=== PATIENT | female | born 1950 | race Caucasian/White ===

== ENCOUNTER → 2017-06-06 | Outpatient (CLI) | payer MEDICARE ==
[2017-06-06 14:50] VITALS: BMI 24.8
[2017-06-06 14:58] VITALS: BP 111/66; PULSE 77; RESP 16; TEMP 98.3
[2017-06-06 16:22] LABS: CH 28.1; CHCM 32.7; HCT 38.8 % (34.0-46.0); HDW 2.26; MCHC 33.6 g/dL (31.0-37.0); MCV 86.2 fL (80.0-100.0); Mean Platelet Volume 7.8; RDW 12.9 % (11.5-15.5); WBC 7.7 k/uL (3.8-10.6)
[2017-06-06 16:28] LABS: ALT 57 U/L (9-52); AST 36 U/L (14-36); Alkaline Phosphatase 67 U/L (38-126); Blood Urea Nitrogen 16 mg/dL (7-17); Carbon Dioxide 27 mmol/L (22-30); Glucose 178 mg/dL (74-99); Non-African American GFR(MDRD) >60 (>60 ml/min/1.73 sqM); Total Bilirubin 0.2 mg/dL (0.2-1.3); Total Protein 6.6 g/dL (6.3-8.2)
[2017-06-06 16:29] LABS: Anion Gap 9 mmol/L; Calcium 9.5 mg/dL (8.4-10.2); Chloride 98 mmol/L (98-107); Iron 47 ug/dL (37-170); Magnesium 1.8 mg/dL (1.6-2.3); Partial Thromboplastin Time 23.1 sec (22.0-30.0); Potassium 3.8 mmol/L (3.5-5.1); Prothrombin Time 10.3 sec (9.0-12.0); Sodium 134 mmol/L (137-145)
[2017-06-06 16:40] LABS: % Iron Saturation 14.3 % (20-50); Prealbumin 28 mg/dL (18-36); Total Iron Binding Capacity 328 ug/dL (265-497)
[2017-06-06 17:35] LABS: Vitamin B12 442 pg/mL
[2017-06-06 18:03] LABS: Hemoglobin A1C 7.3 % (4.2-6.1)
--- NOTE | 2017-06-07 14:42 | P.PN ---
Progress Note - Text To Whom It May Concern: Amber Nixon requires daily nutritional protein drinks and multivitamins as part of her daily expenses. A subsidized program is being requested. Regards, Keily Wilkerson MD
[2017-06-09 10:54] LABS: Selenium 136 mcg/L (63-160)
== END | disposition home or self-care (01) ==
LOC: BARWHC3 14:14
PROVIDERS: ATTEND Surgery Plastic and Reconstructive Surgery
DX: E66.01 Morbid (severe) obesity due to excess calories (principal); N19 Unspecified kidney failure; D50.8 Other iron deficiency anemias; K90.89 Other intestinal malabsorption; E44.0 Moderate protein-calorie malnutrition; E55.9 Vitamin D deficiency, unspecified; K74.1 Hepatic sclerosis; K50.90 Crohn's disease, unspecified, without complications; E89.1 Postprocedural hypoinsulinemia
CPT/HCPCS: 84255; 84134; 84425; 80053; 82607; 82728; 83036; 82525; 82746; 83540; 83550; 83735; 84100; 84443; 84590; 84630; 85027; 85610; 85730; 82306; 83970; 36415; G0463; 99211

== ENCOUNTER 2018-04-04 06:19 | Day surgery (SDC) | payer MEDICARE, OTHER ==
[2018-04-01 13:05] VITALS: BMI 36.0
[~2018-04-04 06:19] MED LIST: ALPRAZolam 0.25 MG TAB PO PRN; ALPRAZolam 0.5 MG TAB PO PRN; ASPIRIN 325 MG TAB PO STA; ATORVASTATIN 80 MG TAB PO STA; NITROGLYCERIN SL TABS 0.4 MG TAB SUBLINGUAL PRN; SODIUM CHLORIDE 0.9% 1,000 ML in EMPTY BAG 1 BAG IV ONE
[2018-04-04] MEDS ORDERED: SODIUM CHLORIDE 0.9% 1,000 ML IV ONE (06:44)
[2018-04-04] MEDS ORDERED: ASPIRIN 81 MG ONE (06:58)
[2018-04-04 07:25] LABS: Glucose,Whole Blood 132 mg/dL (75-99)
[2018-04-04 07:31] VITALS: TEMP 97
[2018-04-04] MEDS ORDERED: MIDAZOLAM 2 MG/2 ML VIAL ONE (07:34)
[2018-04-04] MEDS ORDERED: LIDOCAINE 2% INJ 20 MG/ML SQ ONE (07:42)
[2018-04-04] MEDS ORDERED: MIDAZOLAM 2 MG/2 ML VIAL IVP ONE (07:42)
[2018-04-04] MEDS ORDERED: IOPAMIDOL-370 125ML BTL INJ ONE (07:53)
[2018-04-04] MEDS ORDERED: SODIUM CHLORIDE 0.9% 1,000 ML IV SCH (08:00)
[2018-04-04] MEDS ORDERED: RX INFO: IV CONTRAST WAS GIVEN 1 EACH MISC MISCELLANE PRN (08:00)
--- NOTE | 2018-04-04 09:39 | CC ---
CARDIAC CATHETERIZATION REPORT DATE OF SERVICE: 04/04/2018. INDICATION: Abnormal stress test in a patient with known CAD status post prior angioplasty. REFERRING PHYSICIAN: Maryann Cox. PROCEDURE NOTE: After obtaining informed consent, left heart catheterization and coronary angiogram were performed via the right femoral artery using standard Napoleon catheters. The patient tolerated the procedure well without any obvious immediate complications. A femoral angiogram was performed and decision was made for manual hemostasis. Patient received moderate conscious sedation and total sedation time was 15 minutes. FINDINGS: HEMODYNAMICS: The left ventricular end-diastolic pressure is 14 to 16 mm there is no significant gradient across aortic. LEFT VENTRICULOGRAM: Left ventriculogram not performed. ANGIOGRAPHIC DATA: 1. LEFT MAIN: Left main coronary artery appears calcified but is free of significant stenosis. Divides into left anterior descending coronary artery and circumflex coronary artery. 2. LAD shows a 20% to 30% stenosis in the proximal part, gives off a diagonal branch that has a stent that appears patent. 3. CIRCUMFLEX: Circumflex coronary artery is free of significant disease. 4. RIGHT CORONARY: Right coronary artery is a large dominant vessel and is free of significant stenosis. There is a 30% stenosis in the proximal part. CONCLUSIONS: 1. Patent stent within the diagonal branch. 2. Mild nonobstructive disease involving proximal LAD and right coronary artery. PLAN: Patient's stress test is probably a false positive stress test and her management is going to be in the form of risk factor modification and optimal medical therapy. MMODL / IJN: [id number] /
[2018-04-04 14:13] VITALS: RESP 16
[2018-04-04 14:14] VITALS: BP 135/65; PULSE 52
[2018-04-04 17:12] LABS: Hemoglobin A1C 6.4 % (4.0-6.0)
== END 2018-04-04 14:40 | disposition home or self-care (01) ==
LOC: CATHCVL 06:19
PROVIDERS: ATTEND Internal Medicine Cardiovascular Disease
DX: I25.10 Atherosclerotic heart disease of native coronary artery without angina pectoris (principal); I10 Essential (primary) hypertension; E11.9 Type 2 diabetes mellitus without complications; E78.5 Hyperlipidemia, unspecified; Z82.49 Family history of ischemic heart disease and other diseases of the circulatory system; Z79.82 Long term (current) use of aspirin; Z79.4 Long term (current) use of insulin; Z79.899 Other long term (current) drug therapy
CPT/HCPCS: 93458; 83036; C1894; C1769; J2001; J2250; Q9967

== ENCOUNTER → 2018-06-05 | Outpatient (CLI) | payer MEDICARE, OTHER ==
--- NOTE | 2018-06-05 16:20 | P.PN ---
Subjective Progress Note Date: 06/05/18 HPI: She reports weigh gain of 18 pounds. Her doctors put her back on insulin for Hemoglobin A1c of 6.5%. Has occasional dysphagia. She has to do infusions for her kidneys for the rest off her life. She had a colonoscopy in [place]. ABDOMEN: No hernias. Nontender PLAN: 1. Low carb 2 week diet reviewed. 2. Get labs 3. Went over diet is 1200 kcal and is readdressed to under 1000 kcal. 4. Get labs.
[2018-06-05 17:40] VITALS: BP 131/61; PULSE 63; RESP 15; TEMP 98.2; BMI 26.7
== END | disposition home or self-care (01) ==
LOC: BARWHC3 14:10
PROVIDERS: ATTEND Surgery Plastic and Reconstructive Surgery
DX: R63.5 Abnormal weight gain (principal); R13.10 Dysphagia, unspecified
CPT/HCPCS: 99211

== ENCOUNTER → 2018-06-25 | Outpatient (CLI) | payer MEDICARE, OTHER ==
[2018-06-25 12:46] LABS: HCT 40.4 % (34.0-46.0); HGB 13.3 gm/dL (11.4-16.0); MCH 29.3 pg (25.0-35.0); MCHC 32.9 g/dL (31.0-37.0); MCV 89.1 fL (80.0-100.0); Platelet Count 183 k/uL (150-450); RBC 4.53 m/uL (3.80-5.40); RDW 13.4 % (11.5-15.5); WBC 16.1 k/uL (3.8-10.6)
[2018-06-25 13:02] LABS: ALT 69 U/L (9-52); AST 39 U/L (14-36); Albumin 3.5 g/dL (3.5-5.0); Alkaline Phosphatase 66 U/L (38-126); Anion Gap 8 mmol/L; Blood Urea Nitrogen 20 mg/dL (7-17); Calcium 9.1 mg/dL (8.4-10.2); Carbon Dioxide 31 mmol/L (22-30); Chloride 96 mmol/L (98-107); Cholesterol 163 mg/dL (<200); Glucose 214 mg/dL (74-99); HDL Cholesterol 66 mg/dL (40-60); LDL Cholesterol,Calculated 66 mg/dL (0-99); Magnesium 1.8 mg/dL (1.6-2.3); Partial Thromboplastin Time 21.1 sec (22.0-30.0); Phosphorus 3.2 mg/dL (2.5-4.5); Potassium 4.4 mmol/L (3.5-5.1); Sodium 135 mmol/L (137-145); Total Bilirubin 0.3 mg/dL (0.2-1.3); Total Protein 6.1 g/dL (6.3-8.2); Triglycerides 155 mg/dL (<150)
[2018-06-25 19:37] LABS: Parathyroid Hormone Intact 83.7 pg/mL (14.0-72.0)
[2018-06-25 20:53] LABS: Iron Saturation 19.54 (12.00-45.00)
[2018-06-25 21:01] LABS: Vitamin D 25 Hydroxy 92.4 ng/mL (30.0-100.0)
[2018-06-25 21:13] LABS: Folate, Serum 23.3 ng/mL
[2018-06-25 22:47] LABS: Hemoglobin A1C 6.9 % (4.0-6.0)
[2018-06-26 14:45] LABS: Zinc, Serum 51 ug/dL (60-130)
== END | disposition home or self-care (01) ==
LOC: LABWHC1 11:59
PROVIDERS: ATTEND Surgery Plastic and Reconstructive Surgery
DX: E21.1 Secondary hyperparathyroidism, not elsewhere classified (principal); E66.01 Morbid (severe) obesity due to excess calories; E89.1 Postprocedural hypoinsulinemia; D50.9 Iron deficiency anemia, unspecified; E44.0 Moderate protein-calorie malnutrition; E55.9 Vitamin D deficiency, unspecified; K74.1 Hepatic sclerosis; N19 Unspecified kidney failure; K50.90 Crohn's disease, unspecified, without complications
CPT/HCPCS: 36415; 80053; 80061; 82306; 82525; 82607; 82728; 82746; 83036; 83540; 83550; 83735; 83970; 84100; 84134; 84255; 84425; 84443; 84590; 84630; 85027; 85610; 85730

== ENCOUNTER → 2018-07-03 | Outpatient (CLI) | payer MEDICARE, OTHER ==
[2018-07-03 13:30] VITALS: BP 126/66; PULSE 66; TEMP 97.2; BMI 25.9
--- NOTE | 2018-07-03 13:43 | P.PN ---
Subjective Progress Note Date: 07/03/18 DATE OF SERVICE: 07/03/2018 CHIEF COMPLAINT: Follow-up gastric bypass. HISTORY OF PRESENT ILLNESS: Trinity Nixon is a 68-year-old female who is status post Kia-en-Y gastric bypass in April 2015. She is 3 years out. Her initial weight for her 4 foot 10 frame was 174 pounds. Today she comes in weighing 124 pounds from 128 pounds, 2 months ago. She has lost 4 pounds. Kula body weight is 118 pounds. She has maintained a 50 pound weight loss. Her body mass index has been reduced from 36.4 down to 25.9. Her percent excess weight loss is 90%. She has no issues. She has lost 4 pounds. No reports of abdominal pain. PAST MEDICAL HISTORY: 1. Gastroesophageal reflux disease, resolved. 2. Depression. 3. Hypertension. 4. Asthma. 5. Diabetes type 2. 6. Coronary artery disease. 7. Hypothyroidism. 8. Hemolytic uremic syndrome. 9. Acute renal failure. 9. Morbid obesity, BMI 36.4, initial PAST SURGICAL HISTORY: 1. Upper endoscopy. 2. Cardiac catheterization. 3. Appendectomy. 4. Cholecystectomy. 5. Hysterectomy. 6. Status post Kia-en-Y gastric bypass. 7. Hsitory of back surgery. MEDICATIONS: 1. Januvia. 2. Nitrostat. 3. Toprol-XL. 4. Magnesium oxide. 5. Prednisone. 6. Hydralazine. 7. Catapres. 8. Paxil. 9. Synthroid. 10. Lisinopril 11. Lasix. 12. Ecotrin. 13. Keppra. ALLERGIES: Denies. SOCIAL HISTORY: Lifelong nontobacco user. FAMILY HISTORY: Pertinent for diabetes, congestive heart failure. REVIEW OF SYSTEMS: CONSTITUTIONAL: Her initial weight for her 4 foot 10 frame was 174 pounds. Today she comes in weighing 128 pounds from 119 pounds, 1 year ago. She has gained 9 pounds. Kula body weight is 118 pounds. She has maintained a 46 pound weight loss. Her body mass index has been reduced from 36.4 down to 26.8. Her percent excess weight loss is 83%. GENITOURINARY: She had de Marely kidney failure and is now on infusions. ENDOCRINE: She had been taking insulin and now is on Januvia. GASTROINTESTINAL: She had a prior history of rectal bleed. She completed colonoscopy without incident. HEMATOLOGIC: History bleeding resolved with plasmapheresis. No current bleeding. RESPIRATORY: Prior history of snoring which required tonsillectomy. Also had a prior sleep study. No reports of asthma. CARDIOVASCULAR: No reports of palpitations or chest pain. MUSCULOSKELETAL: Has occasional joint pain including back pain. NEURO: No seizure disorders or headaches. PSYCH: Has depression without suicidal ideation. SKIN: History of itching underneath the pannus consistent with panniculitis. PHYSICAL EXAM: VITAL SIGNS: 4 foot 10, 124 pounds. Body mass index 25.9 Vital Signs Temp 97.2 F L 07/03/18 13:21 Pulse 66 07/03/18 13:21 Resp BP 126/66 07/03/18 13:21 Pulse Ox GENERAL: Well developed and in no acute distress. Pleasant. HEENT: No sclera icterus. Extraocular movements grossly intact. Moist buccal mucosa. Head is atraumatic, normocephalic. Hears conversational speech. No nasal drainage. NECK: Supple without lymphadenopathy. No JV distention. CHEST: Non-labored respirations and equal bilateral excursions. CARDIOVASCULAR: Regular rate and rhythm. Palpable 2+ radial pulses. ABDOMEN: Nontender. Soft, nondistended. MUSCULOSKELETAL: No clubbing, cyanosis or edema. NEUROLOGIC: No focal or lateralizing signs. PSYCH: Appropriate affect. Alert and oriented to person, place and time. SKIN: Good skin turgor. Well perfused. LABS: Reviewed. ASSESSMENT: 1. Morbid obesity due to excess caloric intake. 2. Body mass index reduced from 36.6 down to 25.9 3. Status post Kia-en-Y gastric bypass. 4. Hemolytic-uremic syndrome. 6. Diabetes type 2, insulin-dependent now non-insulin dependent. 7. Hypertension, improved. 8. Hypothyroidism. 9. Vitamin D deficiency. 10. Gastroesophageal reflux disease resolved. PLAN: 1. Continue proteins shakes. 2. Goal calories under 1000 kcal. 3. Recommend protein intake 50 g advised Objective - Vital Signs Vital signs: Vital Signs Temp 97.2 F L 07/03/18 13:21 Pulse 66 07/03/18 13:21 Resp BP 126/66 07/03/18 13:21 Pulse Ox Intake & Output 07/02/18 07/03/18 07/03/18 18:59 06:59 18:59 Weight 56.245 kg
== END | disposition home or self-care (01) ==
LOC: BARWHC3 12:47
PROVIDERS: ATTEND Surgery Plastic and Reconstructive Surgery
DX: Z48.815 Encounter for surgical aftercare following surgery on the digestive system (principal); E66.01 Morbid (severe) obesity due to excess calories; D59.3 Hemolytic-uremic syndrome; E11.9 Type 2 diabetes mellitus without complications; E03.9 Hypothyroidism, unspecified; E55.9 Vitamin D deficiency, unspecified; F32.9 Major depressive disorder, single episode, unspecified; I10 Essential (primary) hypertension; J45.909 Unspecified asthma, uncomplicated; I25.10 Atherosclerotic heart disease of native coronary artery without angina pectoris; Z68.25 Body mass index [BMI] 25.0-25.9, adult; Z90.49 Acquired absence of other specified parts of digestive tract; Z79.4 Long term (current) use of insulin; Z90.89 Acquired absence of other organs; Z90.710 Acquired absence of both cervix and uterus; Z98.890 Other specified postprocedural states; Z98.84 Bariatric surgery status
CPT/HCPCS: 99211

== ENCOUNTER → 2024-10-09 | Outpatient (CLI) | payer MEDICARE, OTHER ==
--- NOTE | 2024-10-13 18:30 | MM ---
Reason for Exam: Screening (asymptomatic). Last screening mammogram was performed 3 month(s) ago. Patient History: Menarche at age 11. Postmenopausal. Estrogen for 2 years, 8 months. Risk Values: Ela 5 year model risk: 1.3%. NCI Lifetime model risk: 2.6%. Prior Study Comparison: 11/21/1996 Screening Mammogram, Unknown. 11/23/1997 Bilateral Special View Mammogram, [facility]. 01/21/1999 Bilateral Screening Mammogram, [facility]. Tissue Density: There are scattered areas of fibroglandular density. Findings: Analyzed By CAD. Chronic nodularity on the right. Benign bilateral oil cyst and secretory calcifications redemonstrated. Right anterior chest wall injection port projecting over the right pectoralis on the MLO view. There is no suspicious group of microcalcifications or new suspicious mass in either breast. Overall Assessment: Benign, BI-RAD 2 Management: Screening Mammogram of both breasts in 1 year. . Patient should continue monthly self-breast exams. A clinical breast exam by your physician is recommended on an annual basis. This exam should not preclude additional follow-up of suspicious palpable abnormalities. Note on Ela scores and lifetime risk: 1. A Ela score greater than 3% is considered moderate risk. If this is the case, consider specialist referral to assess eligibility for a risk reducing agent. 2. If overall lifetime risk for the development of breast cancer is 20% or higher, the patient may qualify for future screening with alternating mammogram and breast MRI. [facility], , 10/13/2024 6:26 PM. Electronically signed and approved by: Luis Gann M.D. Radiologist
== END | disposition home or self-care (01) ==
LOC: RADMAMWWP 15:41
PROVIDERS: ATTEND Family Medicine
DX: Z12.31 Encounter for screening mammogram for malignant neoplasm of breast (principal); R92.323 Mammographic fibroglandular density, bilateral breasts; Z78.0 Asymptomatic menopausal state
CPT/HCPCS: 77067

== ENCOUNTER 2024-12-10 12:56 | Observation (INO) | payer MEDICARE, OTHER ==
--- NOTE | 2024-12-10 13:19 | ED ---
General Adult HPI - General Chief complaint: Chest Pain Stated complaint: chest pain Time Seen by Provider: 12/10/24 13:01 Source: patient, EMS, RN notes reviewed Mode of arrival: EMS Limitations: no limitations - History of Present Illness Initial comments: Patient is a 74-year-old female present to the emergency department with concerns with chest discomfort. Onset of symptoms was 3 days ago. Discomfort has been somewhat steady and mild. Patient has pressure in her chest and an ache of the left shoulder. There is some radiation from the chest towards the left arm. Patient has some mild associated dyspnea. No nausea. No diaphoresis. Patient does have history of previous cardiac disease with somewhat similar symptoms. - Related Data Home Medications Medication Instructions Recorded Confirmed levETIRAcetam [Keppra] 500 mg PO BID 12/29/15 12/10/24 Cholecalciferol [Vitamin D3 (125 125 mcg PO DAILY 12/10/24 12/10/24 Mcg = 5000 Iu)] Ferrous Sulfate [Feosol] 325 mg PO DAILY 12/10/24 12/10/24 Insulin Glargine,Hum.rec.anlog 26 units SQ HS 12/10/24 12/10/24 [Lantus Solostar Pen] Levothyroxine Sodium [Synthroid] 100 mcg PO DAILY 12/10/24 12/10/24 Magnesium Oxide [Mag-Ox] 400 mg PO DAILY 12/10/24 12/10/24 Metoprolol Succinate (ER) [Toprol 12.5 mg PO DAILY 12/10/24 12/10/24 Xl] Omeprazole [PriLOSEC] 20 mg PO DAILY 12/10/24 12/10/24 PARoxetine HCL [Paxil] 40 mg PO DAILY 12/10/24 12/10/24 lisinopriL [Zestril] 20 mg PO DAILY 12/10/24 12/10/24 sitaGLIPtin [Januvia] 100 mg PO DAILY 12/10/24 12/10/24 Allergies Allergy/AdvReac Type Severity Reaction Status Date / Time No Known Allergies Allergy Verified 12/10/24 13:33 Review of Systems ROS Statement: Those systems with pertinent positive or pertinent negative responses have been documented in the HPI. ROS Other: All systems not noted in ROS Statement are negative. Constitutional: Denies: fever Eyes: Denies: eye pain ENT: Denies: ear pain Respiratory: Reports: as per HPI Cardiovascular: Reports: as per HPI, chest pain Gastrointestinal: Denies: vomiting Past Medical History Past Medical History: Blood Disorder, Coronary Artery Disease (CAD), Chest Pain / Angina, CVA/TIA, Diabetes Mellitus, GERD/Reflux, Hyperlipidemia, Hypertension, Seizure Disorder, Thyroid Disorder Additional Past Medical History / Comment(s): HX MIGRAINES. NO TX FOR SLEEP APNEA CURRENTLY. atypical hemolitic uremic syndrome, CVA - NO DEFICITS; HAD FEW SEIZURES, LAST 09/2015. blood clotting disorder, Renal Failure 10/05- now improved. HAS PORT-A-CATH FOR INFUSION Q14D. History of Any Multi-Drug Resistant Organisms: None Reported Past Surgical History: Appendectomy, Bariatric Surgery, Cholecystectomy, Heart Catheterization With Stent, Hysterectomy Additional Past Surgical History / Comment(s): PARTIAL THYROIDECTOMY. 04-26-15 TANNA EN Y. Past Anesthesia/Blood Transfusion Reactions: No Reported Reaction Date of Last Stent Placement:: 08/12/2013 Past Psychological History: Anxiety Smoking Status: Never smoker Past Alcohol Use History: None Reported Past Drug Use History: None Reported - Past Family History Mother Family Medical History: Congestive Heart Failure (CHF), Diabetes Mellitus Father Family Medical History: CVA/TIA General Exam Limitations: no limitations General appearance: alert, in no apparent distress Head exam: Present: normocephalic Eye exam: Present: normal appearance Neck exam: Present: normal inspection Respiratory exam: Present: normal lung sounds bilaterally. Absent: chest wall tenderness Cardiovascular Exam: Present: regular rate, normal rhythm, normal heart sounds Expanded Peripheral pulses: 2+: Radial (R), Radial (L), Dorsalis Pedis (R), Dorsalis Pedis (L) GI/Abdominal exam: Present: soft. Absent: tenderness Extremities exam: Present: normal inspection. Absent: pedal edema, calf tenderness Neurological exam: Present: alert Psychiatric exam: Present: normal affect, normal mood Skin exam: Present: normal color Course Vital Signs 12/10/24 12:58 Temperature 98.0 F Pulse Rate 67 Respiratory 18 Rate Blood Pressure 184/91 O2 Sat by Pulse 98 Oximetry EKG Findings - EKG Results: EKG: interpreted by ERMD (Left axis. Right bundle branch block. Q wave in V6. LVH criteria.), sinus rhythm Medical Decision Making - Medical Decision Making Was pt. sent in by a medical professional or institution (DAYAN Herrera, GYROSCOPE TECHNICIAN, urgent care, hospital, or prison...) When possible be specific @ -Off Did you speak to anyone other than the patient for history (EMS, parent, family, police, friend...)? What history was obtained from this source @ -History of Did you review nursing and triage notes (agree or disagree)? Why? @ -I reviewed and agree with nursing and triage notes Were old charts reviewed (outside hosp., previous admission, EMS record, old EKG, old radiological studies, urgent care reports/EKG's, prison records)? Report findings @ -I will Differential Diagnosis (chest pain, altered mental status, abdominal pain women, abdominal pain men, vaginal bleeding, weakness, fever, dyspnea, syncope, headache, dizziness, GI bleed, back pain, seizure, CVA, palpatations, mental health, musculoskeletal)? @ -Differential Chest Pain: Stable Angina, Unstable Angina, STEMI, NSTEMI Aortic Dissection, Pneumothorax, Musculoskeletal, Esophageal Spasm GERD, Cholecystitis, Pancreatitis, Zoster, this is not meant to be an all-inclusive list. EKG interpreted by me (3pts min.). @ -As above X-rays interpreted by me (1pt min.). @ -Chest x-ray shows no acute process CT interpreted by me (1pt min.). @ -None done U/S interpreted by me (1pt. min.). @ -None done What testing was considered but not performed or refused? (CT, X-rays, U/S, labs)? Why? @ -CT scan of the chest will be ordered What meds were considered but not given or refused? Why? @ -None Did you discuss the management of the patient with other professionals (professionals i.e. DAYAN Herrera, GYROSCOPE TECHNICIAN, lab, RT, psych nurse, social media community manager, shellfish processing laborer, teacher, chief compliance officer, home health care case manager)? Give summary @ -Dr. Reyes covering Dr. Resendiz will admit Was smoking cessation discussed for >3mins.? @ -No Was critical care preformed (if so, how long)? @ -No Were there social determinants of health that impacted care today? How? (Homelessness, low income, unemployed, alcoholism, drug addiction, transportation, low edu. Level, literacy, decrease access to med. care, long-term, rehab)? @ -No Was there de-escalation of care discussed even if they declined (Discuss DNR or withdrawal of care, Hospice)? DNR status @ -No What co-morbidities impacted this encounter? (DM, HTN, Smoking, COPD, CAD, Cancer, CVA, ARF, Chemo, Hep., AIDS, mental health diagnosis, sleep apnea, morbid obesity)? @ -History of coronary artery disease with similar symptoms requiring stents Was patient admitted / discharged? Hospital course, mention meds given and route, prescriptions, significant lab abnormalities, going to OR and other pertinent info. @ -Patient presents with chest discomfort similar to previous cardiac disease. Initial troponin unremarkable. Patient reevaluated and improved with nitroglycerin. D-dimer is elevated and CT scan ordered. Patient will be admitted with cardiac consult. Admission orders written. Patient reevaluated and updated Undiagnosed new problem with uncertain prognosis? @ -No Drug Therapy requiring intensive monitoring for toxicity (Heparin, Nitro, Insulin, Cardizem)? @ -No Were any procedures done? @ -No Diagnosis/symptom? @ -Chest pain Acute, or Chronic, or Acute on Chronic? @ -Acute Uncomplicated (without systemic symptoms) or Complicated (systemic symptoms)? @ -Default Side effects of treatment? @ -No Exacerbation, Progression, or Severe Exacerbation? @ -No Poses a threat to life or bodily function? How? (Chest pain, [place], [place], pneumonia, PE, COPD, DKA, ARF, appy, cholecystitis, CVA, Diverticulitis, Homicidal, Suicidal, threat to staff... and all critical care pts) @ -Threat to cardiac function - Lab Data Result diagrams: 12/10/24 13:42 12/10/24 13:42 Lab Results 12/10/24 12/10/24 12/10/24 Range/Units 13:42 13:42 13:42 WBC 10.9 H (3.8-10.6) k/uL RBC 4.84 (3.80-5.40) m/uL Hgb 14.6 (11.4-16.0) gm/dL Hct 43.1 (34.0-46.0) % MCV 89.2 (80.0-100.0) fL MCH 30.2 (25.0-35.0) pg MCHC 33.8 (31.0-37.0) g/dL RDW 12.7 (11.5-15.5) % Plt Count 154 (150-450) k/uL MPV 8.5 Neutrophils % 74 % Lymphocytes % 14 % Monocytes % 7 % Eosinophils % 3 % Basophils % 0 % Neutrophils # 8.0 H (1.3-7.7) k/uL Lymphocytes # 1.5 (1.0-4.8) k/uL Monocytes # 0.7 (0-1.0) k/uL Eosinophils # 0.3 (0-0.7) k/uL Basophils # 0.0 (0-0.2) k/uL PT 10.7 (10.0-12.5) sec INR 1.0 (<1.2) APTT 19.2 L (22.0-30.0) sec D-Dimer 1.85 H (<0.60) mg/L FEU Sodium 129 L (137-145) mmol/L Potassium 4.7 (3.5-5.1) mmol/L Chloride 96 L (98-107) mmol/L Carbon Dioxide 27 (22-30) mmol/L Anion Gap 6 mmol/L BUN 10 (7-17) mg/dL Creatinine 0.62 (0.52-1.04) mg/dL Est GFR (CKD-EPI)AfAm >90 (>60 ml/min/1.73 sqM) Est GFR (CKD-EPI)NonAf 88 (>60 ml/min/1.73 sqM) Glucose 172 H (74-99) mg/dL Calcium 9.9 (8.4-10.2) mg/dL Magnesium 1.7 (1.6-2.3) mg/dL Total Bilirubin 0.4 (0.2-1.3) mg/dL AST 23 (14-36) U/L ALT 21 (4-34) U/L Alkaline Phosphatase 83 (38-126) U/L Troponin I (0.000-0.034) ng/mL NT-Pro-B Natriuret Pep 157 pg/mL Total Protein 6.2 L (6.3-8.2) g/dL Albumin 3.7 (3.5-5.0) g/dL Amylase 43 (30-110) U/L Lipase 199 (23-300) U/L 02/19/25 Range/Units 13:42 WBC (3.8-10.6) k/uL RBC (3.80-5.40) m/uL Hgb (11.4-16.0) gm/dL Hct (34.0-46.0) % MCV (80.0-100.0) fL MCH (25.0-35.0) pg MCHC (31.0-37.0) g/dL RDW (11.5-15.5) % Plt Count (150-450) k/uL MPV Neutrophils % % Lymphocytes % % Monocytes % % Eosinophils % % Basophils % % Neutrophils # (1.3-7.7) k/uL Lymphocytes # (1.0-4.8) k/uL Monocytes # (0-1.0) k/uL Eosinophils # (0-0.7) k/uL Basophils # (0-0.2) k/uL PT (10.0-12.5) sec INR (<1.2) APTT (22.0-30.0) sec D-Dimer (<0.60) mg/L FEU Sodium (137-145) mmol/L Potassium (3.5-5.1) mmol/L Chloride (98-107) mmol/L Carbon Dioxide (22-30) mmol/L Anion Gap mmol/L BUN (7-17) mg/dL Creatinine (0.52-1.04) mg/dL Est GFR (CKD-EPI)AfAm (>60 ml/min/1.73 sqM) Est GFR (CKD-EPI)NonAf (>60 ml/min/1.73 sqM) Glucose (74-99) mg/dL Calcium (8.4-10.2) mg/dL Magnesium (1.6-2.3) mg/dL Total Bilirubin (0.2-1.3) mg/dL AST (14-36) U/L ALT (4-34) U/L Alkaline Phosphatase (38-126) U/L Troponin I <0.012 (0.000-0.034) ng/mL NT-Pro-B Natriuret Pep pg/mL Total Protein (6.3-8.2) g/dL Albumin (3.5-5.0) g/dL Amylase (30-110) U/L Lipase (23-300) U/L Disposition Clinical Impression: Chest pain Disposition: ADMITTED IP TO THIS HOSP Is patient prescribed a controlled substance at d/c from ED?: No Referrals: Joel Resendiz MD [Primary Care Provider] - 1-2 days Time of Disposition: 14:35
[2024-12-10] MEDS: ASPIRIN 81 MG PO STA (13:33)
[2024-12-10] MEDS: NITROGLYCERIN OINT 1 INCH/GM PACKET TOPICAL STA (13:36)
[2024-12-10 13:46] LABS: Basophils % (A) 0 %; Eosinophils # (A) 0.3 k/uL (0-0.7); Eosinophils % (A) 3 %; HCT 43.1 % (34.0-46.0); HGB 14.6 gm/dL (11.4-16.0); Lymphocytes # (A) 1.5 k/uL (1.0-4.8); Lymphocytes % (A) 14 %; MCH 30.2 pg (25.0-35.0); MCHC 33.8 g/dL (31.0-37.0); MCV 89.2 fL (80.0-100.0); Mean Platelet Volume 8.5; Monocytes # (A) 0.7 k/uL (0-1.0); Monocytes % (A) 7 %; Neutrophils % (A) 74 %; Platelet Count 154 k/uL (150-450); RBC 4.84 m/uL (3.80-5.40); RDW 12.7 % (11.5-15.5); WBC 10.9 k/uL (3.8-10.6)
--- NOTE | 2024-12-10 13:54 | XR ---
EXAMINATION TYPE: XR chest 2V DATE OF EXAM: 12/10/2024 1:50 PM COMPARISON: None. CLINICAL INDICATION: Female, 74 years old with history of Chest Pain, TECHNIQUE: XR chest 2V view(s) obtained. FINDINGS: The heart size is normal. The pulmonary vasculature is normal. The lungs are clear. Port is present on the right with the tip in the right atrium. IMPRESSION: 1. No acute pulmonary process. [facility], , 12/10/2024 1:51 PM
[2024-12-10 14:01] LABS: ALT 21 U/L (4-34); AST 23 U/L (14-36); African American GFR (CKD) >90 (>60 ml/min/1.73 sqM); Albumin 3.7 g/dL (3.5-5.0); Alkaline Phosphatase 83 U/L (38-126); Amylase 43 U/L (30-110); Anion Gap 6 mmol/L; Blood Urea Nitrogen 10 mg/dL (7-17); Calcium 9.9 mg/dL (8.4-10.2); Carbon Dioxide 27 mmol/L (22-30); Chloride 96 mmol/L (98-107); Glucose 172 mg/dL (74-99); Lipase 199 U/L (23-300); Magnesium 1.7 mg/dL (1.6-2.3); Non-African American GFR(CKD) 88 (>60 ml/min/1.73 sqM); Potassium 4.7 mmol/L (3.5-5.1); Sodium 129 mmol/L (137-145); Total Bilirubin 0.4 mg/dL (0.2-1.3); Total Protein 6.2 g/dL (6.3-8.2)
[2024-12-10 14:07] LABS: NT-Pro-B-Type Natriuretic Pept 157 pg/mL
[2024-12-10 14:08] LABS: Prothrombin Time 10.7 sec (10.0-12.5)
[2024-12-10 14:27] LABS: Partial Thromboplastin Time 19.2 sec (22.0-30.0)
[2024-12-10] MEDS ORDERED: NITROGLYCERIN SL TABS 0.4 MG TAB SUBLINGUAL PRN (14:35)
--- NOTE | 2024-12-10 15:51 | CT ---
EXAMINATION TYPE: CT angio chest DATE OF EXAM: 12/10/2024 COMPARISON: 04/29/2015 CLINICAL INDICATION: Female, 74 years old with history of cp; PHH, CP, elevated D-dimer. TECHNIQUE: CTA scan of the thorax is performed with IV Contrast, patient injected with 60 ml mL of Isovue 370, p ulmonary embolism protocol. MIP images are created and reviewed. 3-D postprocessing was performed CT DLP: 285.[address] CTDI: mGy Automated exposure control for dose reduction was used. FINDINGS: There is no suspicious lung mass or nodule nodule, airspace consolidation or abnormal interstitial de nsity. There is no pleural effusion or pneumothorax. The great vessels of the chest are normal and there is no mediastinal, hilar or axillary adenopathy. There are no filling defects within the pulmonary arterial circulation to suggest pulmonary embolism. There is a small hiatal hernia. There are postsurgical changes in the GE junction. There is cholecyst ectomy. No focal osseous lesions are seen. IMPRESSION: 1. No pulmonary embolism. 2. No acute cardiopulmonary disease. 3. Small hiatal hernia and postsurgical changes at the GE junction. [facility], , 12/10/2024 3:48 PM
[2024-12-10] MEDS: NITROGLYCERIN OINT 1 INCH/GM PACKET TOPICAL SCH (18:23)
[2024-12-10] MEDS ORDERED: DEXTROSE 50% SYRINGE 50 ML IVP PRN ×2 (20:44)
--- NOTE | 2024-12-10 20:47 | P.HPIM ---
History of Present Illness H&P Date: 12/10/24 Chief Complaint: Chest pain Very pleasant 74-year-old patient follows with Adriana Moreland with Dr. Resendiz. Chronic medical conditions include CAD with prior stent follows with Dr. Opal Skelton. Diabetes GERD hyperlipidemia hypertension seizure disorder back in 2014 hypothyroid. 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 Has a port on the right side. For 3 days patient been having pain in the left-sided anterior chest the neck sometimes in the back. Mild been constant. Not really related to exertion. Very mild shortness of breath. No dizziness no lightheadedness. Denies any recent stress test. Patient otherwise fairly active. Review of systems: GEN.: None EYES: None HEENT: None NECK: None RESPIRATORY: None CARDIOVASCULAR: As above GASTROINTESTINAL: None GENITOURINARY: None MUSCULOSKELETAL: None LYMPHATICS: None HEMATOLOGICAL: None PSYCHIATRY: None NEUROLOGICAL: None Social history: Denies history of smoking alcohol. Lives alone Physical examination: VITAL SIGNS: 98.2, 60, 19, 150/85, 95% room air GENERAL: BMI 25.2, reclining bed awake comfortable. EYES: Pupils equal. Conjunctiva david l. HEENT: External appearance of nose and ears normal, oral cavity grossly normal. NECK: JVD not raised; masses not palpable. HEART: First and second heart sounds are normal; no edema. LUNGS: Respiratory rate normal; clear to auscultation. ABDOMEN: Soft, nontender, liver spleen not palpable, no masses palpable. PSYCH: Alert and oriented x3; mood and affect david l. MUSCULOSKELETAL:No Clubbing/cyanosis;muscles-grossly intact. OA in different joints NEUROLOGICAL: Cranial nerves grossly intact; no facial asymmetry, power and sensation grossly intact. LYMPHATICS: No lymph nodes palpable in the axilla and neck INVESTIGATIONS, reviewed in the clinical context: December 10, 2024: White count 10.9 hemoglobin 14.6 platelets 154 sodium 129 potassium 4.7 creatinine 0.62 Troponin I less than 0.012 proBNP 157 EKG tracing personally reviewed by me-sinus rhythm. LVH. Chest x-ray film personally reviewed by me-unremarkable CT angio chest: Unremarkable Assessment plan: -Left anterior chest wall pain. For 3 days. Constant. Some noncardiac features. In a patient with known CAD. EKG nonspecific. Troponins negative. Will need a cardiac stress test Follows with [facility]. Opal Skelton -Diabetes mellitus type 2, chronically on insulin Resume home dose. Accu-Cheks and sliding scale. -Essential hypertension Zestril 20 mg a day. Toprol-XL 12.5 mg a day. -GERD Prilosec -Anxiety depression Paxil 40 mg a day -Hypothyroid Synthroid 100 mcg a day -Epilepsy disorder Keppra 5 mg twice daily -Hyponatremia, euvolemic Fluid restriction -Full code Past Medical History Past Medical History: Blood Disorder, Coronary Artery Disease (CAD), Chest Pain / Angina, CVA/TIA, Diabetes Mellitus, GERD/Reflux, Hyperlipidemia, Hypertension, Seizure Disorder, Thyroid Disorder Additional Past Medical History / Comment(s): HX MIGRAINES. NO TX FOR SLEEP APNEA CURRENTLY. atypical hemolitic uremic syndrome, CVA - NO DEFICITS; HAD FEW SEIZURES, LAST 09/2015. blood clotting disorder, Renal Failure 10/05- now [facility] [place] [facility]. HAS PORT-A-CATH FOR INFUSION Q14D. History of Any Multi-Drug Resistant Organisms: None Reported Past Surgical History: Appendectomy, Bariatric Surgery, Cholecystectomy, Heart Catheterization With Stent, Hysterectomy Additional Past Surgical History / Comment(s): PARTIAL THYROIDECTOMY. 04-26-15 TANNA EN Y. Past Anesthesia/Blood Transfusion Reactions: No Reported Reaction Date of Last Stent Placement:: 08/12/2013 Past Psychological History: Anxiety Smoking Status: Never smoker Past Alcohol Use History: None Reported Past Drug Use History: None Reported - Past Family History Mother Family Medical History: Congestive Heart Failure (CHF), Diabetes Mellitus Father Family Medical History: CVA/TIA Medications and Allergies Home Medications Medication Instructions Recorded Confirmed Type levETIRAcetam [Keppra] 500 mg PO BID 12/29/15 12/10/24 History Cholecalciferol [Vitamin D3 (125 125 mcg PO DAILY 12/10/24 12/10/24 History Mcg = 5000 Iu)] Ferrous Sulfate [Feosol] 325 mg PO DAILY 12/10/24 12/10/24 History Insulin Glargine,Hum.rec.anlog 26 units SQ HS 12/10/24 12/10/24 History [Lantus Solostar Pen] Levothyroxine Sodium [Synthroid] 100 mcg PO DAILY 12/10/24 12/10/24 History Magnesium Oxide [Mag-Ox] 400 mg PO DAILY 12/10/24 12/10/24 History Metoprolol Succinate (ER) [Toprol 12.5 mg PO DAILY 12/10/24 12/10/24 History Xl] Omeprazole [PriLOSEC] 20 mg PO DAILY 12/10/24 12/10/24 History PARoxetine HCL [Paxil] 40 mg PO DAILY 12/10/24 12/10/24 History lisinopriL [Zestril] 20 mg PO DAILY 12/10/24 12/10/24 History sitaGLIPtin [Januvia] 100 mg PO DAILY 12/10/24 12/10/24 History Allergies Allergy/AdvReac Type Severity Reaction Status Date / Time No Known Allergies Allergy Verified 12/10/24 13:33 Physical Exam Vitals: Vital Signs Temp Pulse Resp BP Pulse Ox 12/10/24 16:57 98.2 F 60 19 150/85 95 12/10/24 15:28 61 18 163/77 95 12/10/24 12:58 98.0 F 67 18 184/91 98 Intake and Output 12/10/24 12/10/24 12/10/24 06:59 14:59 22:59 Other: Weight 56.699 kg Results CBC & Chem 7: 12/10/24 13:42 12/10/24 13:42 Labs: Abnormal Lab Results - Last 24 Hours (Table) 12/10/24 12/10/24 12/10/24 Range/Units 13:42 13:42 13:42 WBC 10.9 H (3.8-10.6) k/uL Neutrophils # 8.0 H (1.3-7.7) k/uL APTT 19.2 L (22.0-30.0) sec D-Dimer 1.85 H (<0.60) mg/L FEU Sodium 129 L (137-145) mmol/L Chloride 96 L (98-107) mmol/L Glucose 172 H (74-99) mg/dL Total Protein 6.2 L (6.3-8.2) g/dL
[2024-12-10] MEDS: levETIRAcetam 500 MG TAB PO SCH (21:03)
[2024-12-10] MEDS: INSULIN DETEMIR (LEVEMIR) 100 UNIT/ML SYR SQ SCH (21:51)
[2024-12-10 22:25] LABS: Glucose,Whole Blood 202 mg/dL (70-110)
[2024-12-10] MEDS: INSULIN ASPART (NovoLOG) 100 UNIT/ML VIAL SQ SCH (22:49)
[2024-12-11 01:17] LABS: Glucose,Whole Blood 60 mg/dL (70-110)
[2024-12-11] MEDS: ACETAMINOPHEN TAB 500 MG TAB PO PRN (01:26)
[2024-12-11 03:02] LABS: Glucose,Whole Blood 213 mg/dL (70-110)
[2024-12-11] MEDS: LEVOTHYROXINE 100 MCG TAB PO SCH (06:17)
[2024-12-11 06:41] LABS: African American GFR (CKD) >90 (>60 ml/min/1.73 sqM); Anion Gap 6 mmol/L; Blood Urea Nitrogen 7 mg/dL (7-17); Calcium 9.5 mg/dL (8.4-10.2); Carbon Dioxide 28 mmol/L (22-30); Chloride 100 mmol/L (98-107); Glucose 141 mg/dL (74-99); Non-African American GFR(CKD) 89 (>60 ml/min/1.73 sqM); Potassium 4.4 mmol/L (3.5-5.1); Sodium 134 mmol/L (137-145)
[2024-12-11 07:19] LABS: Glucose,Whole Blood 105 mg/dL (70-110)
[2024-12-11] MEDS: METOPROLOL SUCCINATE (ER) 25 MG TAB.ER.24H PO SCH (08:17)
--- NOTE | 2024-12-11 08:17 | P.CRDCN ---
History of Present Illness Consult date: 12/11/24 Consult reason: chest pain History of present illness: This is a 74-year-old female patient of Dr. Skelton with past medical history of coronary artery disease with previous stent to the diagonal branch, diabetes, hypertension, dyslipidemia, family history of premature coronary artery disease. We have been asked to evaluate patient for chest pain. Patient states that on Sunday evening she started having pain in the left side of her chest going into her back and her neck and also the left arm. She complains of pain in the left shoulder blade as well. No dizziness, lightheadedness or syncopal episodes. Pain seemed to get worse then it started on Sunday. She also had some difficulty in breathing decided to come into the hospital for further evaluation. Blood pressure 156/96, heart rate 67, pulse ox 95% on room air. Patient is seen today in the emergency center waiting for bed on the cardiac stepdown unit. Patient was last seen in the cardiology office in February 2022. -EKG: Sinus rhythm with T wave inversions similar to previous EKGs. -Chest x-ray: No acute process. -CTA chest: No PE. No acute cardiopulmonary process. Small hiatal hernia. -Laboratory studies: WBC 10.9, hemoglobin 14.6. D-dimer 1.85. Initial sodium 129 and repeat 134, potassium 4.4, BUN 7 creatinine 0.6. Troponin negative x 3. proBNP 157. -Home cardiac medications: Lisinopril 20 mg daily, magnesium oxide 400 mg daily, metoprolol tartrate 12.5 mg daily. -Cardiac catheterization performed 2018 following an abnormal stress test revealed patent stent in the diagonal branch, mild nonobstructive disease involving proximal LAD and right coronary artery. Review Of Systems: At the time of my exam: CONSTITUTIONAL: Denies fever or chills. HEENT: Denies blurred vision, vision changes, or eye pain. Denies hemoptysis CARDIOVASCULAR: Denies chest pain. Denies orthopnea. Denies PND. Denies palpitations RESPIRATORY: Denies shortness of breath. GASTROINTESTINAL: Denies abdominal pain. Denies nausea or vomiting. HEMATOLOGIC: Denies bleeding disorders. GENITOURINARY: Denies any blood in urine. SKIN: Denies puritis. Denies rash. Physical examination: Gen: This is a 74-year-old female in no acute distress VS: reviewed HEENT: Head is atraumatic, normocephalic. Pupils equal, round. Sclerae is anicteric. NECK: Supple. No JVD. LUNGS: Clear to auscultation. No wheezes or rhonchi. No intercostal retractions. HEART: Regular rate and rhythm. No murmur. ABDOMEN: Soft No tenderness. EXTREMITIES: No pedal edema. No calf tenderness. NEUROLOGICAL: Patient is awake, alert and oriented x3. Assessment: Atypical chest pain, acute coronary syndrome ruled out History of coronary artery disease with previous stent to the diagonal branch with mild nonobstructive disease in the proximal LAD and right coronary artery Hypertension Hyperlipidemia Diabetes Plan: Resume patient's home cardiac medications Discontinue Nitropaste Change aspirin to 81 mg notes Add atorvastatin 20 mg at bedtime Schedule patient for stress echocardiogram today Obtain 2-D echocardiogram and Doppler study to assess cardiac structure and function If testing is unremarkable, patient is cleared for discharge from cardiology with follow-up with Dr. Zeus Skelton in the office and 2 weeks. Thank you kindly for this consultation. Nurse practitioner note has been reviewed, I agree with documented findings and plan of care. Patient was seen and examined. Past Medical History Past Medical History: Blood Disorder, Coronary Artery Disease (CAD), Chest Pain / Angina, CVA/TIA, Diabetes Mellitus, GERD/Reflux, Hyperlipidemia, Hypertension, Seizure Disorder, Thyroid Disorder Additional Past Medical History / Comment(s): HX MIGRAINES. NO TX FOR SLEEP APNEA CURRENTLY. atypical hemolitic uremic syndrome, CVA - NO DEFICITS; HAD FEW SEIZURES, LAST 09/2015. blood clotting disorder, Renal Failure 10/05- now improved. HAS PORT-A-CATH FOR INFUSION Q14D. History of Any Multi-Drug Resistant Organisms: None Reported Past Surgical History: Appendectomy, Bariatric Surgery, Cholecystectomy, Heart Catheterization With Stent, Hysterectomy Additional Past Surgical History / Comment(s): PARTIAL THYROIDECTOMY. 04-26-15 TANNA EN Y. Past Anesthesia/Blood Transfusion Reactions: No Reported Reaction Date of Last Stent Placement:: 08/12/2013 Past Psychological History: Anxiety Smoking Status: Never smoker Past Alcohol Use History: None Reported Past Drug Use History: None Reported - Past Family History Mother Family Medical History: Congestive Heart Failure (CHF), Diabetes Mellitus Father Family Medical History: CVA/TIA Medications and Allergies Home Medications Medication Instructions Recorded Confirmed Type levETIRAcetam [Ethanra] 500 mg PO BID 12/29/15 12/10/24 History Cholecalciferol [Vitamin D3 (125 125 mcg PO DAILY 12/10/24 12/10/24 History Mcg = 5000 Iu)] Ferrous Sulfate [Feosol] 325 mg PO DAILY 12/10/24 12/10/24 History Insulin Glargine,Hum.rec.anlog 26 units SQ HS 12/10/24 12/10/24 History [Lantus Solostar Pen] Levothyroxine Sodium [Synthroid] 100 mcg PO DAILY 12/10/24 12/10/24 History Magnesium Oxide [Mag-Ox] 400 mg PO DAILY 12/10/24 12/10/24 History Metoprolol Succinate (ER) [Toprol 12.5 mg PO DAILY 12/10/24 12/10/24 History Xl] Omeprazole [PriLOSEC] 20 mg PO DAILY 12/10/24 12/10/24 History PARoxetine HCL [Paxil] 40 mg PO DAILY 12/10/24 12/10/24 History lisinopriL [Zestril] 20 mg PO DAILY 12/10/24 12/10/24 History sitaGLIPtin [Januvia] 100 mg PO DAILY 12/10/24 12/10/24 History Allergies Allergy/AdvReac Type Severity Reaction Status Date / Time No Known Allergies Allergy Verified 12/10/24 13:33 Physical Exam Vitals: Vital Signs Temp Pulse Resp BP Pulse Ox 12/11/24 06:26 73 16 12/11/24 05:16 97.6 F 68 18 134/68 99 12/11/24 03:47 71 14 12/11/24 00:46 60 143/75 97 12/10/24 16:57 98.2 F 60 19 150/85 95 12/10/24 15:28 61 18 163/77 95 12/10/24 12:58 98.0 F 67 18 184/91 98 Intake and Output 12/10/24 12/11/24 12/11/24 22:59 06:59 14:59 Intake Total 480 Balance 480 Intake: Oral 480 Other: # Voids 1 Results 12/10/24 13:42 12/11/24 05:40 Cardiac Enzymes 12/10/24 12/10/24 12/10/24 Range/Units 13:42 13:42 16:42 AST 23 (14-36) U/L Troponin I <0.012 <0.012 (0.000-0.034) ng/mL 12/10/24 Range/Units 20:07 AST (14-36) U/L Troponin I <0.012 (0.000-0.034) ng/mL Coagulation 12/10/24 Range/Units 13:42 PT 10.7 (10.0-12.5) sec APTT 19.2 L (22.0-30.0) sec CBC 12/10/24 Range/Units 13:42 WBC 10.9 H (3.8-10.6) k/uL RBC 4.84 (3.80-5.40) m/uL Hgb 14.6 (11.4-16.0) gm/dL Hct 43.1 (34.0-46.0) % Plt Count 154 (150-450) k/uL Comprehensive Metabolic Panel 12/10/24 12/11/24 Range/Units 13:42 05:40 Sodium 129 L 134 L (137-145) mmol/L Potassium 4.7 4.4 (3.5-5.1) mmol/L Chloride 96 L 100 (98-107) mmol/L Carbon Dioxide 27 28 (22-30) mmol/L BUN 10 7 (7-17) mg/dL Creatinine 0.62 0.60 (0.52-1.04) mg/dL Glucose 172 H 141 H (74-99) mg/dL Calcium 9.9 9.5 (8.4-10.2) mg/dL AST 23 (14-36) U/L ALT 21 (4-34) U/L Alkaline Phosphatase 83 (38-126) U/L Total Protein 6.2 L (6.3-8.2) g/dL Albumin 3.7 (3.5-5.0) g/dL Current Medications Generic Name Dose Route Start Last Admin Trade Name Freq PRN Reason Stop Dose Admin Acetaminophen 500 mg 12/11/24 00:55 12/11/24 01:26 Acetaminophen Tab 500 Mg Tab PO 500 mg Q6HR PRN Administration Fever and/ or Pain Aspirin 325 mg 12/11/24 09:00 Aspirin 325 Mg Tab PO DAILY L[facility]LA Cholecalciferol 125 mcg 12/11/24 09:00 Cholecalciferol 125 Mcg (5000 Iu) Tablet PO DAILY [facility] Dextrose/Water 25 ml 12/10/24 20:44 Dextrose 50% Syringe 50 Ml IVP PER PROTOCOL PRN Hypoglycemia Protocol Dextrose/Water 50 ml 12/10/24 20:44 Dextrose 50% Syringe 50 Ml IVP PER PROTOCOL PRN Hypoglycemia Protocol Ferrous Sulfate 325 mg 12/11/24 09:00 Ferrous Sulfate 325 Mg Tab PO DAILY [facility] Insulin Aspart 0 unit 12/10/24 21:00 12/11/24 07:19 Insulin Aspart (Novolog) 100 Unit/Ml Vial SQ Not Given ACHS [facility] Protocol Insulin Detemir 26 unit 12/10/24 21:00 12/10/24 21:51 Insulin Detemir (Levemir) 100 Unit/Ml Syr SQ 26 unit HS [facility] Administration Levetiracetam 500 mg 12/10/24 21:00 12/10/24 21:03 Levetiracetam 500 Mg Tab PO 500 mg BID [facility] Administration Levothyroxine Sodium 100 mcg 12/11/24 06:30 12/11/24 06:17 Levothyroxine 100 Mcg Tab PO 100 mcg DAILY@0630 [facility] Administration Linagliptin 5 mg 12/11/24 09:00 Linagliptin 5 Mg Tablet PO DAILY [facility] Lisinopril 20 mg 12/11/24 09:00 Lisinopril 20 Mg Tab PO DAILY [facility] Magnesium Oxide 400 mg 12/11/24 09:00 Magnesium Oxide 400 Mg Tab PO DAILY [facility] Metoprolol Succinate 12.5 mg 12/11/24 09:00 Metoprolol Succinate (Er) 25 Mg Tab.Er.24h PO DAILY [facility] Nitroglycerin 0.4 mg 12/10/24 14:35 Nitroglycerin Sl Tabs 0.4 Mg Tab SUBLINGUAL Q5M PRN Chest Pain Nitroglycerin 0.5 inch 12/10/24 18:00 12/11/24 06:17 Nitroglycerin Oint 1 Inch/Gm Packet TOPICAL 0.5 inch Q6HR [facility] Administration Pantoprazole Sodium 40 mg 12/11/24 07:30 Pantoprazole 40 Mg Tablet PO AC-BRKFST [facility] Paroxetine HCl 40 mg 12/11/24 09:00 Paroxetine 20 Mg Tab PO DAILY [facility] Intake and Output 12/10/24 12/11/24 12/11/24 22:59 06:59 14:59 Intake Total 480 Balance 480 Intake: Oral 480 Other: # Voids 1 12/10/24 13:42 12/11/24 05:40
[2024-12-11] MEDS: CHOLECALCIFEROL 125 MCG (5000 IU) TABLET PO SCH (08:24)
[2024-12-11] MEDS: LINAGLIPTIN 5 MG TABLET PO SCH (08:24)
[2024-12-11] MEDS: FERROUS SULFATE 325 MG TAB PO SCH (08:24)
[2024-12-11] MEDS: lisinopriL 20 MG TAB PO SCH (08:24)
[2024-12-11] MEDS: PANTOPRAZOLE 40 MG TABLET PO SCH (08:24)
[2024-12-11] MEDS: ASPIRIN 81 MG PO SCH (08:24)
[2024-12-11] MEDS: MAGNESIUM OXIDE 400 MG TAB PO SCH (08:25)
[2024-12-11] MEDS: PARoxetine 20 MG TAB PO SCH (08:25)
[2024-12-11] MEDS ORDERED: ASPIRIN 325 MG TAB PO SCH (09:00)
[2024-12-11 11:02] LABS: Chol/HDL Ratio 3.38 Ratio; LDL Cholesterol,Calculated 92.7 mg/dL (0.0-131.0)
--- NOTE | 2024-12-11 11:45 | CA ---
Stress Echo Report Trinity Nixon Age: 74 Gender: F : 1950 Exam Date: 12/11/2024 10:41 Exam Location: [facility] Ht (in): 59 Wt (lb): 125 Ordering Physician: Lorrie Mccray Referring Physician: LORRIE MCCRAY,, Linux Admin Engineer: Rula Schreiber RDCS Technologist Procedure CPT: Indication: Chest Pain ICD-9 Codes: Rhythm: Patient History: CP, GISELLE, HTN, NUMBNESS FACE NECK, DM, CVA, HIGH CHOL, FAMILY HX, CATH, 1 PTCA. Cardiac Medications: Medications in past 24 hours: Contrast: Stress Results Protocol: Giorgio Total dose(mL): Exercise Duration (min:sec): Max ST Depression (mm): Angina Score: Holland Score: METS: 7.1 Resting HR: 66 Resting BP: 153 / 82 Peak HR: 103 Peak BP: 158 / 79 Max Predicted HR: 144 72 % Max Predicted HR Target HR: 122 Double Product: [id number] Stress Summary: BP Response: Reason for Termination: MAX EXERTION Cardiac Symptoms: CHEST PAIN ECG Analysis Resting ECG: Stress ECG: Arrhythmia: Echo Analysis Resting Echo: Peak Echo Analysis: MEASUREMENTS (Male/Female) Normal Values CONCLUSIONS Exercise tolerance The patient achieved only 72% of maximum predicted heart rate Normal electrocardiogram and echocardiogram up to the level of heart rate achieved Overall nondiagnostic stress test Dr. Antoine Padilla MD (Electronically Signed) Final Date: 11 December 2024 11:44
[2024-12-11 12:23] LABS: Glucose,Whole Blood 109 mg/dL (70-110)
--- NOTE | 2024-12-11 13:10 | CA ---
Transthoracic Echo Report Name: Trinity Nixon Age: 74 Gender: F : 1950 Exam Date: 12/11/2024 10:57 Exam Location: [place] [facility] Ht (in): 59 Wt (lb): 125 Ordering Physician: Eva Erickson Attending/Referring Phys: [id number], Georgina Pre Press Operator Rula Schreiber RDCS Procedure CPT: Indications: Chest Pain Cardiac Hx: Technical Quality: Fair Contrast 1: Definity Total Dose (mL): 2 Contrast 2: Total Dose (mL): MEASUREMENTS (Male / Female) Normal Values 2D ECHO LV Diastolic Diameter PLAX 4.4 cm 4.2 - 5.9 / 3.9 - 5.3 cm LV Systolic Diameter PLAX 2.8 cm IVS Diastolic Thickness 1.1 cm 0.6 - 1.0 / 0.6 - 0.9 cm LVPW Diastolic Thickness 1.2 cm 0.6 - 1.0 / 0.6 - 0.9 cm LV Relative Wall Thickness 0.5 RV Internal Dim ED PLAX 1.7 cm LA Systolic Diameter LX 3.7 cm 3.0 - 4.0 / 2.7 - 3.8 cm LA Volume 49.7 cm??? 18 - 58 / 22 - 52 cm??? LA Volume Index 32.1 cm???/m??? 16 - 28 cm???/m??? M-MODE Aortic Root Diameter MM 3.4 cm LA Systolic Diameter MM 3.2 cm LA Ao Ratio MM 0.9 AV Cusp Separation MM 1.7 cm DOPPLER MV Area PHT 1.8 cm??? Mitral E Point Velocity 57.8 cm/s Mitral A Point Velocity 90.7 cm/s Mitral E to A Ratio 0.6 MV Deceleration Time 414.6 ms TR Peak Velocity 204.7 cm/s TR Peak Gradient 16.8 mmHg FINDINGS Left Ventricle Left ventricular ejection fraction is estimated at 55-60 %. Mildly increased septal wall thickness. Mildly increased posterior wall thickness. Normal left ventricular systolic function with no obvious regional wall motion abnormalities. Left ventricular cavity size normal. Right Ventricle Right ventricle not well visualized. Right Atrium Mild right atrial dilatation. Left Atrium Mildly increased left atrial volume. Mitral Valve Structurally normal mitral valve. Trace to mild mitral regurgitation. No mitral stenosis. Aortic Valve Trileaflet aortic valve. No aortic regurgitation. Diffuse thickening (sclerosis) of the aortic valve cusps without reduced excursion. No aortic stenosis. Tricuspid Valve Structurally normal tricuspid valve. Trace to mild tricuspid regurgitation. No tricuspid stenosis. Pulmonic Valve Structurally normal pulmonic valve. Trace pulmonic regurgitation. No pulmonic stenosis. Pericardium No pericardial or pleural effusion. Aorta Normal size aortic root and proximal ascending aorta. CONCLUSIONS Normal biventricular systolic function Aortic sclerosis with no stenosis No pericardial effusion Previewed by: Dr. Antoine Padilla MD (Electronically Signed) Final Date: 11 December 2024 13:09
[2024-12-11] MEDS: ISOSORBIDE MONONITRATE ER 15 MG TAB PO STA ×2 (13:24)
[2024-12-11 17:47] LABS: Glucose,Whole Blood 126 mg/dL (70-110)
[2024-12-11 19:56] LABS: Glucose,Whole Blood 263 mg/dL (70-110)
[2024-12-11] MEDS: INSULIN GLARGINE (LANTUS) 100 UNIT/ML SYR SQ SCH (20:18)
[2024-12-11] MEDS: ATORVASTATIN 20 MG TAB PO SCH (20:18)
--- NOTE | 2024-12-11 20:28 | P.PN ---
Progress Note - Text Progress Note Date: 12/11/24 Chief Complaint: Chest pain Very pleasant 74-year-old patient follows with Adriana Moreland with Dr. Resendiz. Chronic medical conditions include CAD with prior stent follows with Dr. Opal Skelton. Diabetes GERD hyperlipidemia hypertension seizure disorder back in 2014 hypothyroid. 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 Has a port on the right side. For 3 days patient been having pain in the left-sided anterior chest the neck sometimes in the back. Mild been constant. Not really related to exertion. Very mild shortness of breath. No dizziness no lightheadedness. Denies any recent stress test. Patient otherwise fairly active. December 11: Underwent a stress echocardiogram. Nondiagnostic. Patient's pain shifted more on the left shoulder. Not able to lift it up much. Talk to patient about following up with orthopedic outpatient. Because of still having some chest pain Imdur was increased to [address] Padilla see how she does today. Active Medications Acetaminophen (Acetaminophen Tab 500 Mg Tab) 500 mg PO Q6HR PRN PRN Reason: Fever and/ or Pain Last Admin: 12/11/24 14:54 Dose: 500 mg Aspirin (Aspirin 81 Mg) 81 mg PO DAILY [facility] Last Admin: 12/11/24 08:24 Dose: 81 mg Atorvastatin Calcium (Atorvastatin 20 Mg Tab) 20 mg PO HS [facility] Cholecalciferol (Cholecalciferol 125 Mcg (5000 Iu) Tablet) 125 mcg PO DAILY [facility] Last Admin: 12/11/24 08:24 Dose: 125 mcg Dextrose/Water (Dextrose 50% Syringe 50 Ml) 25 ml IVP PER PROTOCOL PRN; Protocol PRN Reason: Hypoglycemia Dextrose/Water (Dextrose 50% Syringe 50 Ml) 50 ml IVP PER PROTOCOL PRN; Protoco l PRN Reason: Hypoglycemia Ferrous Sulfate (Ferrous Sulfate 325 Mg Tab) 325 mg PO DAILY [facility] Last Admin: 12/11/24 08:24 Dose: 325 mg Insulin Aspart (Insulin Aspart (Novolog) 100 Unit/Ml Vial) 0 unit SQ [facility]; Protocol Last Admin: 12/11/24 17:47 Dose: Not Given Insulin Glargine (Insulin Glargine (Lantus) 100 Unit/Ml Syr) 26 unit SQ [facility] Isosorbide Mononitrate (Isosorbide Mononitrate Er 30 Mg Tab.Er.24h) 30 mg PO DAILY [facility] Levetiracetam (Levetiracetam 500 Mg Tab) 500 mg PO BID [facility] Last Admin: 12/11/24 08:24 Dose: 500 mg Levothyroxine Sodium (Levothyroxine 100 Mcg Tab) 100 mcg PO DAILY@0630 [facility] Last Admin: 12/11/24 06:17 Dose: 100 mcg Linagliptin (Linagliptin 5 Mg Tablet) 5 mg PO DAILY [facility] Last Admin: 12/11/24 08:24 Dose: 5 mg Lisinopril (Lisinopril 20 Mg Tab) 20 mg PO DAILY [facility] Last Admin: 12/11/24 08:24 Dose: 20 mg Magnesium Oxide (Magnesium Oxide 400 Mg Tab) 400 mg PO DAILY [facility] Last Admin: 12/11/24 08:25 Dose: 400 mg Metoprolol Succinate (Metoprolol Succinate (Er) 25 Mg Tab.Er.24h) 12.5 mg PO DAILY [facility] Last Admin: 12/11/24 08:17 Dose: Not Given Nitroglycerin (Nitroglycerin Sl Tabs 0.4 Mg Tab) 0.4 mg SUBLINGUAL Q5M PRN PRN Reason: Chest Pain Pantoprazole Sodium (Pantoprazole 40 Mg Tablet) 40 mg PO AC-BRKFST [facility] Last Admin: 12/11/24 08:24 Dose: 40 mg Paroxetine HCl (Paroxetine 20 Mg Tab) 40 mg PO DAILY [facility] Last Admin: 12/11/24 08:25 Dose: 40 mg Social history: Denies history of smoking alcohol. Lives alone Physical examination: VITAL SIGNS: 98.1, 57, 16, 143 x 66, 94% room air GENERAL: BMI 25.2, reclining bed awake comfortable. EYES: Pupils equal. Conjunctiva david l. HEENT: External appearance of nose and ears normal, oral cavity grossly normal. NECK: JVD not raised; masses not palpable. HEART: First and second heart sounds are normal; no edema. LUNGS: Respiratory rate normal; clear to auscultation. ABDOMEN: Soft, nontender, liver spleen not palpable, no masses palpable. PSYCH: Alert and oriented x3; mood and affect david l. MUSCULOSKELETAL:No Clubbing/cyanosis;muscles-grossly intact. OA in different joints. Not able to lift her left arm stretched outward on the side chest up to horizontal INVESTIGATIONS, reviewed in the clinical context: Stress echocardiogram: Nondiagnostic stress test. 2D echocardiogram: EF 50 to 60%. December 10, 2024: White count 10.9 hemoglobin 14.6 platelets 154 sodium 129 potassium 4.7 creatinine 0.62 Troponin I less than 0.012 proBNP 157 EKG tracing personally reviewed by me-sinus rhythm. LVH. Chest x-ray film personally reviewed by me-unremarkable CT angio chest: Unremarkable Assessment plan: -Left anterior chest wall pain. For 3 days. Constant. Some noncardiac features. In a patient with known CAD.: Possible angina EKG nonspecific. Troponins negative. 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 Opal Skelton Imdur 30 mg added -Possible left rotator cuff dysfunction as patient unable to lift her left arm above 90 degrees. On the side Follow-up with orthopedic outpatient -Diabetes mellitus type 2, chronically on insulin Resume home dose. Accu-Cheks and sliding scale. -Essential hypertension Zestril 20 mg a day. Toprol-XL 12.5 mg a day. -GERD Prilosec -Anxiety depression Paxil 40 mg a day -Hypothyroid Synthroid 100 mcg a day -Epilepsy disorder Keppra 5 mg twice daily -Hyponatremia, euvolemic Fluid restriction -Full code Past Medical History Past Medical History: Blood Disorder, Coronary Artery Disease (CAD), Chest Pain / Angina, CVA/TIA, Diabetes Mellitus, GERD/Reflux, Hyperlipidemia, Hypertension, Seizure Disorder, Thyroid Disorder Additional Past Medical History / Comment(s): HX MIGRAINES. NO TX FOR SLEEP APNEA CURRENTLY. atypical hemolitic uremic syndrome, CVA - NO DEFICITS; HAD FEW SEIZURES, LAST 09/2015. blood clotting disorder, Renal Failure 10/05- now improved. HAS PORT-A-CATH FOR INFUSION Q14D. History of Any Multi-Drug Resistant Organisms: None Reported Past Surgical History: Appendectomy, Bariatric Surgery, Cholecystectomy, Heart Catheterization With Stent, Hysterectomy Additional Past Surgical History / Comment(s): PARTIAL THYROIDECTOMY. 04-26-15 TANNA EN Y. Past Anesthesia/Blood Transfusion Reactions: No Reported Reaction Date of Last Stent Placement:: 08/12/2013 Past Psychological History: Anxiety Smoking Status: Never smoker Past Alcohol Use History: None Reported Past Drug Use History: None Reported
[2024-12-12 05:41] LABS: Glucose,Whole Blood 129 mg/dL (70-110)
[2024-12-12] MEDS ORDERED: DOBUTamine DRIP for NUC MED 500 MG/250 ML BAG IV ONE (08:00)
[2024-12-12] MEDS: ISOSORBIDE MONONITRATE ER 30 MG TAB.ER.24H PO SCH (08:30)
[2024-12-12] MEDS ORDERED: DOBUTamine DRIP for NUC MED 500 MG in DEXTROSE/WATER 1 250ML.BAG IV PRN (10:45)
[2024-12-12 12:15] LABS: Glucose,Whole Blood 174 mg/dL (70-110)
--- NOTE | 2024-12-12 12:57 | P.PN ---
Subjective Progress Note Date: 12/12/24 Consult reason: chest pain History of present illness: This is a 74-year-old female patient of Dr. Skelton with past medical history of coronary artery disease with previous stent to the diagonal branch, diabetes, hypertension, dyslipidemia, family history of premature coronary artery disease. We have been asked to evaluate patient for chest pain. Patient states that on Sunday evening she started having pain in the left side of her chest going into her back and her neck and also the left arm. She complains of pain in the left shoulder blade as well. No dizziness, lightheadedness or syncopal episodes. Pain seemed to get worse then it started on Sunday. She also had some difficulty in breathing decided to come into the hospital for further parish luation. Blood pressure 156/96, heart rate 67, pulse ox 95% on room air. Patient is seen today in the emergency center waiting for bed on the cardiac stepdown unit. Patient was last seen in the cardiology office in February 2022. -EKG: Sinus rhythm with T wave inversions similar to previous EKGs. -Chest x-ray: No acute process. -CTA chest: No PE. No acute cardiopulmonary process. Small hiatal hernia. -Laboratory studies: WBC 10.9, hemoglobin 14.6. D-dimer 1.85. Initial sodium 129 and repeat 134, potassium 4.4, BUN 7 creatinine 0.6. Troponin negative x 3. proBNP 157. -Home cardiac medications: Lisinopril 20 mg daily, magnesium oxide 400 mg daily, metoprolol tartrate 12.5 mg daily. -Cardiac catheterization performed 2018 following an abnormal stress test revealed patent stent in the diagonal branch, mild nonobstructive disease involving proximal LAD and right coronary artery. 12/12 Patient seen and examined. Yesterday, patient underwent stress echocardiogram which revealed that patient only achieved 72% of maximum predicted heart rate. Normal electrocardiogram and echocardiogram up to the level of heart rate achieved. Overall nondiagnostic stress test. Patient was experiencing chest pain during stress test. She is complaining of chest pain this morning in the left shoulder and left upper anterior chest. She was started on Imdur 30 mg daily yesterday. She is agreeable to undergo a dobutamine stress echo today which we will try to obtain adequate heart rate. Echocardiogram reveals normal biventricular systolic function. Aortic sclerosis with no stenosis. No peric ardial effusion. Physical examination: Gen: This is a 74-year-old female in no acute distress VS: reviewed HEENT: Head is atraumatic, normocephalic. Pupils equal, round. Sclerae is anicteric. NECK: Supple. No JVD. LUNGS: Clear to auscultation. No wheezes or rhonchi. No intercostal retractions. HEART: Regular rate and rhythm. No murmur. ABDOMEN: Soft No tenderness. EXTREMITIES: No pedal edema. No calf tenderness. NEUROLOGICAL: Patient is awake, alert and oriented x3. Assessment: Atypical chest pain, acute coronary syndrome ruled out History of coronary artery disease with previous stent to the diagonal branch with mild nonobstructive disease in the proximal LAD and right coronary artery Hypertension Hyperlipidemia Diabetes Plan: Resume patient's home cardiac medications: Aspirin grams daily, atorvastatin 20 mg at bedtime, lisinopril 20 mg daily, magnesium. Continue the addition of Imdur 30 mg daily Schedule patient for dobutamine stress echocardiogram today If testing is unremarkable, patient is cleared for discharge from cardiology with follow-up with Dr. Zeus Skelton in the office and 2 weeks. Nurse practitioner note has been reviewed, I agree with documented findings and plan of care. Patient was seen and examined. Objective - Vital Signs Vital signs: Vital Signs Temp 98.0 F 12/12/24 07:00 Pulse 63 12/12/24 07:00 Resp 16 12/12/24 07:00 BP 166/75 12/12/24 07:00 Pulse Ox 97 12/12/24 07:00 FiO2 Intake & Output 12/11/24 12/12/24 12/12/24 18:59 06:59 18:59 Other: Voiding Method Toilet # Voids 1 2 - Labs CBC & Chem 7: 12/10/24 13:42 12/11/24 05:40 Labs: Abnormal Lab Results - Last 24 Hours (Table) 12/11/24 12/11/24 12/11/24 Range/Units 05:40 17:51 19:52 POC Glucose (mg/dL) 126 H 263 H (70-110) mg/dL Triglycerides 223.00 H (0.00-149.00) mg/dL VLDL Cholesterol, Calc 44.60 H (5.00-40.00) mg/dL 12/12/24 Range/Units 05:38 POC Glucose (mg/dL) 129 H (70-110) mg/dL Triglycerides (0.00-149.00) mg/dL VLDL Cholesterol, Calc (5.00-40.00) mg/dL
[2024-12-12 17:22] LABS: Glucose,Whole Blood 143 mg/dL (70-110)
[2024-12-12 19:37] LABS: Glucose,Whole Blood 228 mg/dL (70-110)
--- NOTE | 2024-12-12 20:45 | CA ---
Dobutamine Stress Echocardiogram Report Trinity Nixon Age: 74 Gender: F : 1950 Exam Date: 12/12/2024 13:02 Exam Location: [facility] Ordering Physician: Eva Erickson Referring Physician: Georgina [employer] Associate: Rula Schreiber RDCS Technologist: Ht (in): 69 Wt (lb): 125 Procedure CPT: Indication: 1200, ate, chest pain ICD-9 Codes: Rhythm: Patient History: CHEST PAIN, DIFFICULTY IN BREATHING, NUMBNESS IN FACE/NECK, HTN, DIABETIC, PRIOR STROKE, HYPERCHOLESTEROLEMIA, FAMILY HX OF HEART DISEASE, PRIOR CATH WITH STENT Cardiac Medications: Medications in past 24 hours: Contrast: Definity Total Dose (mL): 2 Stress Results Protocol: Dobutamine Peak Dose (???g/kg/min): 40 Duration (min:sec): Atropine:(mg) None Target HR: 122 Double Product: Resting HR: 61 Resting BP: 137 / 70 Peak HR: 127 Peak BP: 153 / 56 Max Predicted HR: 144 88 % Max Predicted HR Stress Summary: BP Response: Reason for Termination: Target HR Cardiac Symptoms: CHEST PAIN ECG Analysis Resting EKG: Stress EKG: Arrhythmia: Echo Analysis Base Echo Analysis: Low Echo Anaylsis: Peak Echo Analysis: Recovery Echo: MEASUREMENTS (Male/Female) Normal Values CONCLUSIONS Normal electrocardiogram and echocardiogram in response to dobutamine Dr. Antoine Padilla MD (Electronically Signed) Final Date: 12 December 2024 20:44
--- NOTE | 2024-12-12 22:42 | P.PN ---
Progress Note - Text Progress Note Date: 12/12/24 Chief Complaint: Chest pain Very pleasant 74-year-old patient follows with Adriana Moreland with Dr. Resendiz. Chronic medical conditions include CAD with prior stent follows with Dr. Opal Skelton. Diabetes GERD hyperlipidemia hypertension seizure disorder back in 2014 hypothyroid. 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 Has a port on the right side. For 3 days patient been having pain in the left-sided anterior chest the neck sometimes in the back. Mild been constant. Not really related to exertion. Very mild shortness of breath. No dizziness no lightheadedness. Denies any recent stress test. Patient otherwise fairly active. December 11: Underwent a stress echocardiogram. Nondiagnostic. Patient's pain shifted more on the left shoulder. Not able to lift it up much. Talk to patient about following up with orthopedic outpatient. Because of still having some chest pain Imdur was increased to [address] Padilla see how she does today. December 12: Some pain on the shoulder anterior chest wall present. Dobutamine stress echocardiogram this evening came back negative. Patient has been up and about. Social history: Denies history of smoking alcohol. Lives alone Physical examination: VITAL SIGNS: 98.1, 69, 15, 139 x 76, 95% room air GENERAL: BMI 25.2, reclining bed awake comfortable. EYES: Pupils equal. Conjunctiva david l. HEENT: External appearance of nose and ears normal, oral cavity grossly normal. NECK: JVD not raised; masses not palpable. HEART: First and second heart sounds are normal; no edema. LUNGS: Respiratory rate normal; clear to auscultation. ABDOMEN: Soft, nontender, liver spleen not palpable, no masses palpable. PSYCH: Alert and oriented x3; mood and affect david l. MUSCULOSKELETAL:No Clubbing/cyanosis;muscles-grossly intact. OA in different joints. Not able to lift her left arm stretched outward on the side chest up to horizontal INVESTIGATIONS, reviewed in the clinical context: Dobutamine stress echocardiogram negative Stress echocardiogram: Nondiagnostic stress test. 2D echocardiogram: EF 50 to 60%. December 10, 2024: White count 10.9 hemoglobin 14.6 platelets 154 sodium 129 potassium 4.7 creatinine 0.62 Troponin I less than 0.012 proBNP 157 EKG tracing personally reviewed by me-sinus rhythm. LVH. Chest x-ray film personally reviewed by me-unremarkable CT angio chest: Unremarkable Assessment plan: -Left anterior chest wall pain. For 3 days. Constant. Some noncardiac features. In a patient with known CAD.: Possible angina EKG nonspecific. Troponins negative. 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 Opal Skelton Imdur 30 mg added Dobutamine stress echocardiogram negative -Possible left rotator cuff dysfunction as patient unable to lift her left arm above 90 degrees. On the side Follow-up with orthopedic outpatient -Diabetes mellitus type 2, chronically on insulin Resume home dose. Accu-Cheks and sliding scale. -Essential hypertension Zestril 20 mg a day. Toprol-XL 12.5 mg a day. -GERD Prilosec -Anxiety depression Paxil 40 mg a day -Hypothyroid Synthroid 100 mcg a day -Epilepsy disorder Keppra 5 mg twice daily -Hyponatremia, euvolemic Fluid restriction -Full code Past Medical History Past Medical History: Blood Disorder, Coronary Artery Disease (CAD), Chest Pain / Angina, CVA/TIA, Diabetes Mellitus, GERD/Reflux, Hyperlipidemia, Hypertension, Seizure Disorder, Thyroid Disorder Additional Past Medical History / Comment(s): HX MIGRAINES. NO TX FOR SLEEP APNEA CURRENTLY. atypical hemolitic uremic syndrome, CVA - NO DEFICITS; HAD FEW SEIZURES, LAST 09/2015. blood clotting disorder, Renal Failure 10/05- now improved. HAS PORT-A-CATH FOR INFUSION Q14D. History of Any Multi-Drug Resistant Organisms: None Reported Past Surgical History: Appendectomy, Bariatric Surgery, Cholecystectomy, Heart Catheterization With Stent, Hysterectomy Additional Past Surgical History / Comment(s): PARTIAL THYROIDECTOMY. 04-26-15 TANNA EN Y. Past Anesthesia/Blood Transfusion Reactions: No Reported Reaction Date of Last Stent Placement:: 08/12/2013 Past Psychological History: Anxiety Smoking Status: Never smoker Past Alcohol Use History: None Reported Past Drug Use History: None Reported
[2024-12-13 06:04] LABS: Glucose,Whole Blood 127 mg/dL (70-110)
[2024-12-13 06:56] LABS: African American GFR (CKD) >90 (>60 ml/min/1.73 sqM); Anion Gap 5 mmol/L; Blood Urea Nitrogen 9 mg/dL (7-17); Calcium 9.5 mg/dL (8.4-10.2); Carbon Dioxide 28 mmol/L (22-30); Chloride 103 mmol/L (98-107); Glucose 136 mg/dL (74-99); Non-African American GFR(CKD) 89 (>60 ml/min/1.73 sqM); Potassium 4.4 mmol/L (3.5-5.1); Sodium 136 mmol/L (137-145)
[2024-12-13 07:51] VITALS: BP 148/74; PULSE 62; RESP 17; TEMP 98
[2024-12-13 12:11] LABS: Glucose,Whole Blood 163 mg/dL (70-110)
--- NOTE | 2024-12-13 14:28 | P.PN ---
Subjective Progress Note Date: 12/13/24 This is a 74-year-old female patient of Dr. Skelton with past medical history of coronary artery disease with previous stent to the diagonal branch, diabetes, hypertension, dyslipidemia, family history of premature coronary artery disease. We have been asked to evaluate patient for chest pain. Patient states that on Sunday evening she started having pain in the left side of her chest going into her back and her neck and also the left arm. She complains of pain in the left shoulder blade as well. No dizziness, lightheadedness or syncopal episodes. Pain seemed to get worse then it started on Sunday. She also had some difficulty in breathing decided to come into the hospital for further evaluation . Blood pressure 156/96, heart rate 67, pulse ox 95% on room air. Patient is seen today in the emergency center waiting for bed on the cardiac stepdown unit. Patient was last seen in the cardiology office in February 2022. -EKG: Sinus rhythm with T wave inversions similar to previous EKGs. -Chest x-ray: No acute process. -CTA chest: No PE. No acute cardiopulmonary process. Small hiatal hernia. -Laboratory studies: WBC 10.9, hemoglobin 14.6. D-dimer 1.85. Initial sodium 129 and repeat 134, potassium 4.4, BUN 7 creatinine 0.6. Troponin negative x 3. proBNP 157. -Home cardiac medications: Lisinopril 20 mg daily, magnesium oxide 400 mg daily, metoprolol tartrate 12.5 mg daily. -Cardiac catheterization performed 2018 following an abnormal stress test revealed patent stent in the diagonal branch, mild nonobstructive disease involving proximal LAD and right coronary artery. 12/13/24 Was seen and examined sitting up in bed. She is overall feeling better. Continues to have left scapular pain mostly with palpation and certain arm movements. Dobutamine stress echo showed no evidence of ischemia. She is eager to be discharged home. Physical examination: Gen: This is a 74-year-old female in no acute distress VS: reviewed HEENT: Head is atraumatic, normocephalic. Pupils equal, round. Sclerae is anicteric. NECK: Supple. No JVD. LUNGS: Clear to auscultation. No wheezes or rhonchi. No intercostal retractions. HEART: Regular rate and rhythm. No murmur. ABDOMEN: Soft No tenderness. EXTREMITIES: No pedal edema. No calf tenderness. NEUROLOGICAL: Patient is awake, alert and oriented x3. Assessment: Atypical chest pain, acute coronary syndrome ruled out dobutamine stress echo negative for ischemia History of coronary artery disease with previous stent to the diagonal branch with mild nonobstructive disease in the proximal LAD and right coronary artery Hypertension Hyperlipidemia Diabetes Plan: From cardiology's perspective patient is cleared for discharge from cardiology with follow-up with Dr. Zeus Skelton in the office and 2 weeks. Nurse practitioner note has been reviewed, I agree with documented findings and plan of care. Patient was seen and examined. Objective - Vital Signs Vital signs: Vital Signs Temp 98.0 F 12/13/24 06:55 Pulse 62 12/13/24 06:55 Resp 17 12/13/24 06:55 BP 148/74 12/13/24 06:55 Pulse Ox 93 L 12/13/24 06:55 FiO2 Intake & Output 12/12/24 12/13/24 12/13/24 18:59 06:59 18:59 Other: Voiding Method Toilet Toilet # Voids 3 2 - Labs CBC & Chem 7: 12/10/24 13:42 12/13/24 05:46 Labs: Abnormal Lab Results - Last 24 Hours (Table) 12/12/24 12/12/24 12/13/24 Range/Units 17:22 19:36 05:46 Sodium 136 L (137-145) mmol/L Glucose 136 H (74-99) mg/dL POC Glucose (mg/dL) 143 H 228 H (70-110) mg/dL 12/13/24 12/13/24 Range/Units 06:02 12:08 Sodium (137-145) mmol/L Glucose (74-99) mg/dL POC Glucose (mg/dL) 127 H 163 H (70-110) mg/dL
--- NOTE | 2024-12-13 17:51 | P.DS ---
Providers Date of admission: 12/10/24 14:36 Expected date of discharge: 12/13/24 Attending physician: oKbi Reyes Consults: 12/10/24 14:35 Consult Physician Urgent Consulting Provider: Marie Navarro Consult Reason/Comments: cp Do you want consulting provider notified?: Yes Primary care physician: [facility] Course: Chief Complaint: Chest pain Very pleasant 74-year-old patient follows with Adriana Moreland with Dr. Resendiz. Chronic medical conditions include CAD with prior stent follows with Dr. Opal Skelton. Diabetes GERD hyperlipidemia hypertension seizure disorder back in 2014 hypothyroid. 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 Has a port on the right side. For 3 days patient been having pain in the left-sided anterior chest the neck sometimes in the back. Mild been constant. Not really related to exertion. Very mild shortness of breath. No dizziness no lightheadedness. Denies any recent stress test. Patient otherwise fairly active. December 11: Underwent a stress echocardiogram. Nondiagnostic. Patient's pain shifted more on the left shoulder. Not able to lift it up much. Talk to patient about following up with orthopedic outpatient. Because of still having some chest pain Imdur was increased to [address] Padilla see how she does today. December 12: Some pain on the shoulder anterior chest wall present. Dobutamine stress echocardiogram this evening came back negative. Patient has been up and about. December 13. Patient be discharged home. Follow-up with orthopedics. 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 She also mentioned she has some left arm weakness from a prior stroke. Social history: Denies history of smoking alcohol. Lives alone Physical examination: VITAL SIGNS: 98, 62, 17, 148 x 74, 93% room air GENERAL: BMI 25.2, reclining bed awake comfortable. EYES: Pupils equal. Conjunctiva david l. HEENT: External appearance of nose and ears normal, oral cavity grossly normal. NECK: JVD not raised; masses not palpable. HEART: First and second heart sounds are normal; no edema. LUNGS: Respiratory rate normal; clear to auscultation. ABDOMEN: Soft, nontender, liver spleen not palpable, no masses palpable. PSYCH: Alert and oriented x3; mood and affect david l. MUSCULOSKELETAL:No Clubbing/cyanosis;muscles-grossly intact. OA in different joints. Not able to lift her left arm stretched outward on the side chest up to horizontal INVESTIGATIONS, reviewed in the clinical context: December 13: Potassium 4.4 creatinine 0.59 Dobutamine stress echocardiogram negative Stress echocardiogram: Nondiagnostic stress test. 2D echocardiogram: EF 50 to 60%. December 10, 2024: White count 10.9 hemoglobin 14.6 platelets 154 sodium 129 potassium 4.7 creatinine 0.62 Troponin I less than 0.012 proBNP 157 EKG tracing personally reviewed by me-sinus rhythm. LVH. Chest x-ray film personally reviewed by me-unremarkable CT angio chest: Unremarkable Assessment plan: -Left anterior chest wall pain. For 3 days. Constant. Some noncardiac features. In a patient with known CAD.: Possible angina EKG nonspecific. Troponins negative. Stress echocardiogram: Nondiagnostic Follows with manufacturing shift supervisor Dr. Opal Skelton Imdur 30 mg added Dobutamine stress echocardiogram negative -Possible left rotator cuff dysfunction as patient unable to lift her left arm above 90 degrees. On the side Follow-up with mumtaz Palma outpatient -Diabetes mellitus type 2, chronically on insulin Resume home dose. Accu-Cheks and sliding scale. -Essential hypertension Zestril 20 mg a day. Toprol-XL 12.5 mg a day. -GERD Prilosec -Anxiety depression Paxil 40 mg a day -Hypothyroid Synthroid 100 mcg a day -Epilepsy disorder Keppra 500 mg twice daily -Hyponatremia, euvolemic Fluid restriction -Full code Disposition: Home Past Medical History Past Medical History: Blood Disorder, Coronary Artery Disease (CAD), Chest Pain / Angina, CVA/TIA, Diabetes Mellitus, GERD/Reflux, Hyperlipidemia, Hypertension, Seizure Disorder, Thyroid Disorder Additional Past Medical History / Comment(s): HX MIGRAINES. NO TX FOR SLEEP APNEA CURRENTLY. atypical hemolitic uremic syndrome, CVA - NO DEFICITS; HAD FEW SEIZURES, LAST 09/2015. blood clotting disorder, Renal Failure 10/05- now improved. HAS PORT-A-CATH FOR INFUSION Q14D. History of Any Multi-Drug Resistant Organisms: None Reported Past Surgical History: Appendectomy, Bariatric Surgery, Cholecystectomy, Heart Catheterization With Stent, Hysterectomy Additional Past Surgical History / Comment(s): PARTIAL THYROIDECTOMY. 04-26-15 TANNA EN Y. Past Anesthesia/Blood Transfusion Reactions: No Reported Reaction Date of Last Stent Placement:: 08/12/2013 Past Psychological History: Anxiety Smoking Status: Never smoker Past Alcohol Use History: None Reported Past Drug Use History: None Reported Plan - Discharge Summary Discharge Rx Participant: No New Discharge Prescriptions: New Aspirin 81 mg PO DAILY tab Nitroglycerin Sl Tabs [Nitrostat] 0.4 mg SUBLINGUAL Q5M PRN #30 tab PRN Reason: Chest Pain Isosorbide Mononitrate ER [Imdur] 30 mg PO DAILY #30 tab Continue levETIRAcetam [Keppra] 500 mg PO BID lisinopriL [Zestril] 20 mg PO DAILY Metoprolol Succinate (ER) [Toprol XL] 12.5 mg PO DAILY Levothyroxine Sodium [Synthroid] 100 mcg PO DAILY sitaGLIPtin [Januvia] 100 mg PO DAILY PARoxetine HCL [Paxil] 40 mg PO DAILY Ferrous Sulfate [Iron (65 MG Elemental)] 325 mg PO DAILY Omeprazole [PriLOSEC] 20 mg PO DAILY Magnesium Oxide [Mag-Ox] 400 mg PO DAILY Insulin Glargine,Hum.rec.anlog [Lantus Solostar Pen] 26 units SQ HS Cholecalciferol [Vitamin D3 (125 Mcg = 5000 Iu)] 125 mcg PO DAILY Discharge Medication List levETIRAcetam [Keppra] 500 mg PO BID 12/29/15 [History] Cholecalciferol [Vitamin D3 (125 Mcg = 5000 Iu)] 125 mcg PO DAILY 12/10/24 [History] Ferrous Sulfate [Iron (65 MG Elemental)] 325 mg PO DAILY 12/10/24 [History] Insulin Glargine,Hum.rec.anlog [Lantus Solostar Pen] 26 units SQ HS 12/10/24 [History] Levothyroxine Sodium [Synthroid] 100 mcg PO DAILY 12/10/24 [History] Magnesium Oxide [Mag-Ox] 400 mg PO DAILY 12/10/24 [History] Metoprolol Succinate (ER) [Toprol XL] 12.5 mg PO DAILY 12/10/24 [History] Omeprazole [PriLOSEC] 20 mg PO DAILY 12/10/24 [History] PARoxetine HCL [Paxil] 40 mg PO DAILY 12/10/24 [History] lisinopriL [Zestril] 20 mg PO DAILY 12/10/24 [History] sitaGLIPtin [Januvia] 100 mg PO DAILY 12/10/24 [History] Aspirin 81 mg PO DAILY tab 12/11/24 [Rx] Nitroglycerin Sl Tabs [Nitrostat] 0.4 mg SUBLINGUAL Q5M PRN #30 tab 12/11/24 [Rx] Isosorbide Mononitrate ER [Imdur] 30 mg PO DAILY #30 tab 12/13/24 [Rx] Follow up Appointment(s)/Referral(s): Joel Resendiz MD [Primary Care Provider] - 1-2 days Landon Palma MD [STAFF PHYSICIAN] - 1 Week (left shoulder pain ) Spike Skelton MD [STAFF PHYSICIAN] - 1 Week Patient Instructions/Handouts: Chest Pain (DC) Activity/Diet/Wound Care/Special Instructions: dc if ok with cardiology Discharge Disposition: HOME SELF-CARE
== END 2024-12-13 12:35 | disposition home or self-care (01) ==
LOC: EC 12:56 → 6NMEDSUR 14:36
PROVIDERS: ADMIT Hospitalist; ATTEND Hospitalist
DX: R07.89 Other chest pain (principal); E87.1 Hypo-osmolality and hyponatremia; I25.10 Atherosclerotic heart disease of native coronary artery without angina pectoris; I45.10 Unspecified right bundle-branch block; E11.9 Type 2 diabetes mellitus without complications; I35.8 Other nonrheumatic aortic valve disorders; I10 Essential (primary) hypertension; E78.5 Hyperlipidemia, unspecified; G40.909 Epilepsy, unspecified, not intractable, without status epilepticus; K21.9 Gastro-esophageal reflux disease without esophagitis; D59.39 Other hemolytic-uremic syndrome; R79.89 Other specified abnormal findings of blood chemistry; E03.9 Hypothyroidism, unspecified; K44.9 Diaphragmatic hernia without obstruction or gangrene; M25.512 Pain in left shoulder; M79.602 Pain in left arm; M54.2 Cervicalgia; M54.9 Dorsalgia, unspecified; F41.9 Anxiety disorder, unspecified; F32.A Depression, unspecified; I69.354 Hemiplegia and hemiparesis following cerebral infarction affecting left non-dominant side; Z79.890 Hormone replacement therapy; Z79.84 Long term (current) use of oral hypoglycemic drugs; Z79.4 Long term (current) use of insulin; Z79.899 Other long term (current) drug therapy; Z95.5 Presence of coronary angioplasty implant and graft; Z95.828 Presence of other vascular implants and grafts
CPT/HCPCS: 99285; 36415; 93005 ×2; 93306; 93351 ×2; 85379; 83880; 80061; 80053; 80048 ×2; 82150; 83690; 83735; 84484; 85025; 85610; 85730; 71046; 71275; G0378 ×4; J1250; Q9957 ×2; Q9967